=== PATIENT | male | born 1935 | race Native Hawaiian/Other Pacific Islander ===

== ENCOUNTER 2017-06-21 09:04 | Outpatient (CLI) | payer OTHER, BC | END 2017-06-21 10:30 | disposition home or self-care (01) | LOC: US 09:04 | DX: R09.89 Other specified symptoms and signs involving the circulatory and respiratory systems (principal) ==

== ENCOUNTER 2018-10-05 16:22 | Outpatient (CLI) | payer OTHER, BC | END 2018-10-05 16:38 | disposition short-term general hospital (02) | LOC: AMB 16:22 | DX: R06.2 Wheezing (principal) | CPT/HCPCS: A0425; A0427 ==

== ENCOUNTER 2018-11-22 10:36 | Inpatient (IN) | payer OTHER | END 2018-11-29 09:40 | disposition still patient (30) | LOC: PAVA 10:36 → PAVC 10:41 | PROVIDERS: ADMIT Internal Medicine ==

== ENCOUNTER 2018-11-25 04:36 | Outpatient (CLI) | payer OTHER ==
[2018-11-25 05:46] LABS: PLATELET COUNT 324 K/uL (142-355)
== END 2018-11-25 19:07 | disposition home or self-care (01) ==
LOC: LAB 04:36
PROVIDERS: Internal Medicine
DX: D64.9 Anemia, unspecified (principal); K92.2 Gastrointestinal hemorrhage, unspecified; K44.9 Diaphragmatic hernia without obstruction or gangrene
CPT/HCPCS: 36415; 80053; 82306; 82607; 82728; 83540; 84153; 84443; 85027

== ENCOUNTER 2018-11-26 12:00 | Outpatient (CLI) | payer OTHER, BC | END 2018-11-26 20:44 | disposition home or self-care (01) | LOC: LAB 12:00 | DX: E79.0 Hyperuricemia without signs of inflammatory arthritis and tophaceous disease (principal); K22.10 Ulcer of esophagus without bleeding | CPT/HCPCS: 84550 ==

== ENCOUNTER 2018-11-28 06:28 | Outpatient (CLI) | payer OTHER, BC | END 2018-11-28 23:11 | disposition home or self-care (01) | LOC: LAB 06:28 | DX: K92.2 Gastrointestinal hemorrhage, unspecified (principal) | CPT/HCPCS: 87081 ==

== ENCOUNTER 2018-11-29 10:26 | Inpatient (IN) | payer OTHER | END 2018-12-27 13:48 | disposition still patient (30) | LOC: PAVC 10:26 | PROVIDERS: ADMIT Internal Medicine ==

== ENCOUNTER 2018-12-04 23:06 | Outpatient (CLI) | payer OTHER | END 2018-12-05 00:06 | disposition home or self-care (01) | LOC: LAB 23:06 | DX: R19.5 Other fecal abnormalities (principal) | CPT/HCPCS: 83630; 87015; 87045; 87324; 87328; 87329; 87449; 87899 ==

== ENCOUNTER 2018-12-20 14:07 | Outpatient (CLI) | payer OTHER, BC | END 2018-12-20 19:46 | disposition home or self-care (01) | LOC: LAB 14:07 | DX: M10.9 Gout, unspecified (principal) | CPT/HCPCS: 84550 ==

== ENCOUNTER 2018-12-27 14:27 | Inpatient (IN) | payer OTHER | END 2019-01-27 12:32 | disposition still patient (30) | LOC: PAVC 14:27 | PROVIDERS: ADMIT Internal Medicine ==

== ENCOUNTER 2019-01-27 12:57 | Inpatient (IN) | payer OTHER | END 2019-02-26 13:44 | disposition still patient (30) | LOC: PAVC 12:57 | PROVIDERS: ADMIT Internal Medicine ==

== ENCOUNTER 2019-02-19 04:17 | Outpatient (CLI) | payer OTHER | END 2019-02-19 20:07 | disposition home or self-care (01) | LOC: LAB 04:17 | DX: E79.0 Hyperuricemia without signs of inflammatory arthritis and tophaceous disease (principal) | CPT/HCPCS: 36415; 84550 ==

== ENCOUNTER 2019-02-26 14:18 | Inpatient (IN) | payer OTHER ==
[2019-03-05] MEDS ORDERED: SEROQUEL50 MG PO (02:52)
[2019-03-05] MEDS ORDERED: PANTOPRAZOLE 40MG TA PO (02:52)
[2019-03-05] MEDS ORDERED: ASCO500T18 PO (02:53)
[2019-03-05] MEDS ORDERED: VITAMIN D32000 UNIT PO (02:53)
[2019-03-05] MEDS ORDERED: LORA1TAB17 PO (02:54)
[2019-03-05] MEDS ORDERED: LORA0.5T17 PO (02:54)
[2019-03-05] MEDS ORDERED: CLON0.5T36 PO (02:55)
[2019-03-05] MEDS ORDERED: TYLENOL325 M1 PO (02:56)
[2019-03-05] MEDS ORDERED: CLOP75TA2 PO (02:57)
[2019-03-05] MEDS ORDERED: CALCIUM 600 + D PO (02:57)
[2019-03-05] MEDS ORDERED: COLCRYS 0.6MG0.6 MG PO (02:57)
[2019-03-05] MEDS ORDERED: MEGESTROL AC40 MG/ML PO (02:58)
[2019-03-05] MEDS ORDERED: DONE5TAB PO (02:58)
[2019-03-05] MEDS ORDERED: RISP0.25 PO (02:59)
[2019-03-05] MEDS ORDERED: NAMENDA5 MG PO (02:59)
[2019-03-05] MEDS ORDERED: DULO30CA PO (03:00)
== END 2019-03-29 09:41 | disposition still patient (30) ==
LOC: PAVC 14:18
PROVIDERS: ADMIT Internal Medicine
DX: G30.9 Alzheimer's disease, unspecified (principal); J18.1 Lobar pneumonia, unspecified organism; R13.12 Dysphagia, oropharyngeal phase; I25.10 Atherosclerotic heart disease of native coronary artery without angina pectoris; N18.4 Chronic kidney disease, stage 4 (severe); I10 Essential (primary) hypertension; I95.9 Hypotension, unspecified; F03.90 Unspecified dementia, unspecified severity, without behavioral disturbance, psychotic disturbance, mood disturbance, and anxiety

== ENCOUNTER 2019-03-05 02:35 | Inpatient (IN) | payer OTHER ==
[~2019-03-05] VITALS: Ht 175.3 cm; Wt 70.0 kg
[2019-03-05] VITALS (11 sets, daily range): BP systolic 66–128; BP diastolic 36–68; TEMP 97.3–99; Ht 175.3 cm; Wt 70.0 kg
[2019-03-05] MEDS ORDERED: PANTOPRAZOLE 40MG TA PO (02:52)
[2019-03-05] MEDS ORDERED: SEROQUEL50 MG PO (02:52)
[2019-03-05] MEDS ORDERED: ASCO500T18 PO (02:53)
[2019-03-05] MEDS ORDERED: VITAMIN D32000 UNIT PO (02:53)
[2019-03-05] MEDS ORDERED: LORA0.5T17 PO (02:54)
[2019-03-05] MEDS ORDERED: LORA1TAB17 PO (02:54)
[2019-03-05] MEDS ORDERED: CLON0.5T36 PO (02:55)
[2019-03-05] MEDS ORDERED: TYLENOL325 M1 PO (02:56)
[2019-03-05] MEDS ORDERED: CALCIUM 600 + D PO (02:57)
[2019-03-05] MEDS ORDERED: CLOP75TA2 PO (02:57)
[2019-03-05] MEDS ORDERED: COLCRYS 0.6MG0.6 MG PO (02:57)
[2019-03-05] MEDS ORDERED: DONE5TAB PO (02:58)
[2019-03-05] MEDS ORDERED: MEGESTROL AC40 MG/ML PO (02:58)
[2019-03-05] MEDS ORDERED: RISP0.25 PO (02:59)
[2019-03-05] MEDS ORDERED: NAMENDA5 MG PO (02:59)
[2019-03-05] MEDS ORDERED: DULO30CA PO (03:00)
[2019-03-05 03:13] LABS: PLATELET COUNT 311 K/uL (142-355)
[2019-03-05 04:01] LABS: POTASSIUM 3.9 mmol/L (3.6-5.2)
[2019-03-06] VITALS (7 sets, daily range): BP systolic 97–127; BP diastolic 44–64; TEMP 97.6–99.8
[2019-03-07 04:00] VITALS: BP 98/56; TEMP 98
[2019-03-07 08:00] VITALS: BP 114/69; TEMP 97.7
[2019-03-07 12:00] VITALS: BP 103/48; TEMP 98.2
[2019-03-07 16:00] VITALS: BP 113/59; TEMP 98.1
[2019-03-07 20:00] VITALS: BP 132/75; TEMP 98.2
[2019-03-08] VITALS: BP 108/56; TEMP 98.7
[2019-03-08 04:00] VITALS: BP 153/76; TEMP 97.8
[2019-03-08 08:00] VITALS: BP 132/72; TEMP 98.2
[2019-03-08 10:44] LABS: PLATELET COUNT 291 K/uL (142-355)
[2019-03-08 10:52] LABS: POTASSIUM 3.9 mmol/L (3.6-5.2)
[2019-03-08 12:00] VITALS: BP 118/61; TEMP 98.5
== END 2019-03-08 13:50 | DRG 194 ==
LOC: ED 02:35 → MED/SURG 04:00
PROVIDERS: Internal Medicine; ADMIT Internal Medicine
DX: J18.8 Other pneumonia, unspecified organism (principal); J91.8 Pleural effusion in other conditions classified elsewhere; N18.4 Chronic kidney disease, stage 4 (severe); F02.81 Dementia in other diseases classified elsewhere, unspecified severity, with behavioral disturbance; I95.89 Other hypotension; R09.02 Hypoxemia; I25.10 Atherosclerotic heart disease of native coronary artery without angina pectoris; G30.8 Other Alzheimer's disease
CPT/HCPCS: 36415; 80053; 80200; 83605; 85027; 87040; 93005; 94640; 94664; 94760; 96365; 96366; 99284; J0456; J0696; J1630; J1940; J2060; J2543; J3260

== ENCOUNTER 2019-04-08 02:24 | Outpatient (CLI) | payer OTHER ==
[~2019-04-08 02:24] MED LIST: ASCO500T18 PO; CALCIUM 600 + D PO; CLON0.5T36 PO; CLOP75TA2 PO; COLCRYS 0.6MG0.6 MG PO; DONE5TAB PO; DULO30CA PO; LORA0.5T17 PO; LORA1TAB17 PO; MEGESTROL AC40 MG/ML PO; NAMENDA5 MG PO; PANTOPRAZOLE 40MG TA PO; RISP0.25 PO; SEROQUEL50 MG PO; TYLENOL325 M1 PO; VITAMIN D32000 UNIT PO
== END 2019-04-08 22:59 | disposition home or self-care (01) ==
LOC: LAB 02:24
DX: E79.0 Hyperuricemia without signs of inflammatory arthritis and tophaceous disease (principal)
CPT/HCPCS: 84550

== ENCOUNTER 2019-04-10 07:00 | Outpatient (CLI) | payer OTHER, BC ==
[2019-04-10 08:31] LABS: POTASSIUM 3.9 mmol/L (3.6-5.2)
== END 2019-04-10 19:40 | disposition home or self-care (01) ==
LOC: LAB 07:00
PROVIDERS: Family Medicine
DX: R60.1 Generalized edema (principal)
CPT/HCPCS: 80048

== ENCOUNTER 2019-04-28 12:38 | Inpatient (IN) | payer OTHER | END 2019-05-29 12:32 | disposition still patient (30) | LOC: PAVC 12:38 | PROVIDERS: ADMIT Internal Medicine ==

== ENCOUNTER 2019-05-01 08:11 | Outpatient (CLI) | payer OTHER ==
[2019-05-01 08:46] LABS: PLATELET COUNT 205 K/uL (142-355)
== END 2019-05-01 19:48 | disposition home or self-care (01) ==
LOC: LAB 08:11
PROVIDERS: Internal Medicine
DX: D64.89 Other specified anemias (principal); M10.9 Gout, unspecified; M62.81 Muscle weakness (generalized); F03.91 Unspecified dementia, unspecified severity, with behavioral disturbance; N18.4 Chronic kidney disease, stage 4 (severe)
CPT/HCPCS: 80053; 82607; 82728; 83540; 85027

== ENCOUNTER 2019-05-29 14:22 | Inpatient (IN) | payer OTHER | END 2019-06-29 17:17 | disposition still patient (30) | LOC: PAVC 14:22 | PROVIDERS: ADMIT Internal Medicine ==

== ENCOUNTER 2019-06-25 08:27 | Outpatient (CLI) | payer OTHER | END 2019-06-25 19:54 | disposition home or self-care (01) | LOC: RESP 08:27 | DX: I25.10 Atherosclerotic heart disease of native coronary artery without angina pectoris (principal); I50.9 Heart failure, unspecified | CPT/HCPCS: 93306 ==

== ENCOUNTER 2019-06-29 17:48 | Inpatient (IN) | payer OTHER | END 2019-07-29 12:59 | disposition still patient (30) | LOC: PAVC 17:48 | PROVIDERS: ADMIT Internal Medicine ==

== ENCOUNTER 2019-07-29 13:37 | Inpatient (IN) | payer OTHER ==
[2019-08-17] MEDS ORDERED: DULO60CA2 PO (18:55)
[2019-08-17] MEDS ORDERED: FURO20TA67 PO (18:56)
[2019-08-17] MEDS ORDERED: COLCRYS 0.6MG0.6 MG PO (18:58)
[2019-08-17] MEDS ORDERED: ULORIC40 MG PO (19:00)
[2019-08-17] MEDS ORDERED: SEROQUEL25 MG PO (19:00)
[2019-08-17] MEDS ORDERED: RISP0.25 PO (19:05)
== END 2019-08-29 14:16 | disposition still patient (30) ==
LOC: PAVC 13:37
PROVIDERS: ADMIT Internal Medicine

== ENCOUNTER 2019-08-14 12:28 | Outpatient (CLI) | payer OTHER, BC ==
[2019-08-14 12:43] LABS: PLATELET COUNT 304 K/uL (142-355)
[2019-08-14 14:07] LABS: POTASSIUM 3.9 mmol/L (3.6-5.2)
== END 2019-08-14 19:48 | disposition home or self-care (01) ==
LOC: LAB 12:28
PROVIDERS: Internal Medicine
DX: R05 Cough (principal); R00.0 Tachycardia, unspecified
CPT/HCPCS: 36415; 80053; 85027

== ENCOUNTER 2019-08-15 11:07 | Outpatient (CLI) | payer OTHER, BC | END 2019-08-15 21:30 | disposition home or self-care (01) | LOC: LAB 11:07 | DX: J11.1 Influenza due to unidentified influenza virus with other respiratory manifestations (principal); R05 Cough; R50.9 Fever, unspecified; R53.83 Other fatigue | CPT/HCPCS: 87502 ==

== ENCOUNTER 2019-08-15 14:45 | Outpatient (CLI) | payer OTHER, BC | END 2019-08-15 21:32 | disposition home or self-care (01) | LOC: RAD 14:45 | DX: R05 Cough (principal); R50.9 Fever, unspecified ==

== ENCOUNTER 2019-08-17 12:15 | Inpatient (IN) | payer OTHER ==
[~2019-08-17] VITALS: Ht 172.7 cm; Wt 68.1 kg
[2019-08-17 14:22] VITALS: BP 116/69; TEMP 98.4; Ht 172.7 cm; Wt 68.1 kg
[2019-08-17 14:22] LABS: PLATELET COUNT 379 K/uL (142-355)
[2019-08-17 14:32] LABS: POTASSIUM 4.1 mmol/L (3.6-5.2)
[2019-08-17 16:00] VITALS: BP 110/62; TEMP 97.6
[2019-08-17] MEDS ORDERED: DULO60CA2 PO (18:55)
[2019-08-17] MEDS ORDERED: FURO20TA67 PO (18:56)
[2019-08-17] MEDS ORDERED: COLCRYS 0.6MG0.6 MG PO (18:58)
[2019-08-17] MEDS ORDERED: ULORIC40 MG PO (19:00)
[2019-08-17] MEDS ORDERED: SEROQUEL25 MG PO (19:00)
[2019-08-17] MEDS ORDERED: RISP0.25 PO (19:05)
[2019-08-17 19:54] VITALS: BP 131/81; TEMP 97.6
[2019-08-18] VITALS (7 sets, daily range): BP systolic 99–131; BP diastolic 46–78; TEMP 97–99
[2019-08-18 12:57] LABS: POTASSIUM 3.6 mmol/L (3.6-5.2)
[2019-08-19 03:55] VITALS: BP 110/63; TEMP 98.4
[2019-08-19 05:15] LABS: PLATELET COUNT 318 K/uL (142-355)
[2019-08-19 05:30] LABS: POTASSIUM 3.5 mmol/L (3.6-5.2)
[2019-08-19 08:00] VITALS: BP 96/43; TEMP 97.8
[2019-08-19 12:00] VITALS: BP 101/35; TEMP 96.4
[2019-08-19 16:00] VITALS: BP 116/61; TEMP 97.4
[2019-08-19 20:00] VITALS: BP 122/65; TEMP 99.2
[2019-08-20] VITALS: BP 127/68; TEMP 100
[2019-08-20 04:00] VITALS: BP 113/57; TEMP 99.3
[2019-08-20 06:01] LABS: POTASSIUM 3.4 mmol/L (3.6-5.2)
[2019-08-20 08:00] VITALS: BP 122/60; TEMP 98.1
[2019-08-20 12:00] VITALS: BP 117/72; TEMP 97.9
== END 2019-08-20 15:38 | DRG 194 ==
LOC: MED/SURG 12:15
PROVIDERS: ADMIT Internal Medicine
DX: J18.8 Other pneumonia, unspecified organism (principal); E87.0 Hyperosmolality and hypernatremia; N17.8 Other acute kidney failure; I12.0 Hypertensive chronic kidney disease with stage 5 chronic kidney disease or end stage renal disease; N18.5 Chronic kidney disease, stage 5; E86.0 Dehydration; G30.8 Other Alzheimer's disease; F02.80 Dementia in other diseases classified elsewhere, unspecified severity, without behavioral disturbance, psychotic disturbance, mood disturbance, and anxiety; J11.1 Influenza due to unidentified influenza virus with other respiratory manifestations; R05 Cough; R50.9 Fever, unspecified; R53.83 Other fatigue
CPT/HCPCS: 36415; 80048; 80053; 83605; 83630; 83735; 83880; 85027; 87015; 87040; 87045; 87324; 87328; 87329; 87449; 87502; 87899; J1335; J1940; J1956; J2543; J3490

== ENCOUNTER 2019-08-29 14:59 | Inpatient (IN) | payer OTHER ==
[~2019-08-29 14:59] MED LIST changes: +DULO60CA2 PO; +FURO20TA67 PO; +SEROQUEL25 MG PO; +ULORIC40 MG PO
[2019-09-27] MEDS ORDERED: MULT VITAMI1 PO (04:41)
[2019-09-27] MEDS ORDERED: PROTEINE1 PO (04:42)
[2019-09-27] MEDS ORDERED: SEROQUEL25 MG PO (04:43)
[2019-09-27] MEDS ORDERED: JUVE1 PO (04:45)
[2019-09-27] MEDS ORDERED: CLARITIN10 M1 PO (04:46)
[2019-09-27] MEDS ORDERED: NAMZARIC 28-101 CAP PO (04:48)
== END 2019-09-28 08:00 | disposition still patient (30) ==
LOC: PAVC 14:59
PROVIDERS: ADMIT Internal Medicine

== ENCOUNTER 2019-09-27 00:36 | Inpatient (IN) | payer OTHER ==
[2019-09-27] VITALS (8 sets, daily range): BP systolic 80–115; BP diastolic 44–64; TEMP 97.4–102.8; Ht 172.7 cm; Wt 74.0 kg
[~2019-09-27] VITALS: Ht 172.7 cm; Wt 74.0 kg
[2019-09-27 01:16] LABS: PLATELET COUNT 196 K/uL (142-355)
[2019-09-27 01:25] LABS: POTASSIUM 3.6 mmol/L (3.6-5.2)
[2019-09-27 01:37] LABS: PARTIAL THROMBOPLASTIN TIME 26.3 SECONDS (24.5-33.6)
[2019-09-27] MEDS ORDERED: MULT VITAMI1 PO (04:41)
[2019-09-27] MEDS ORDERED: PROTEINE1 PO (04:42)
[2019-09-27] MEDS ORDERED: SEROQUEL25 MG PO (04:43)
[2019-09-27] MEDS ORDERED: JUVE1 PO (04:45)
[2019-09-27] MEDS ORDERED: CLARITIN10 M1 PO (04:46)
[2019-09-27] MEDS ORDERED: NAMZARIC 28-101 CAP PO (04:48)
[2019-09-28] VITALS (7 sets, daily range): BP systolic 96–116; BP diastolic 45–72; TEMP 98.1–99.7
[2019-09-28 04:27] LABS: PLATELET COUNT 137 K/uL (142-355)
[2019-09-28 04:47] LABS: POTASSIUM 3.2 mmol/L (3.6-5.2)
[2019-09-29 04:00] VITALS: BP 106/61; TEMP 98.3
[2019-09-29 08:00] VITALS: BP 117/62; TEMP 99.3
[2019-09-29 12:00] VITALS: BP 111/44; TEMP 99
[2019-09-29 16:00] VITALS: BP 134/66; TEMP 100.2
[2019-09-29 19:42] VITALS: BP 142/65; TEMP 100.1
[2019-09-30] VITALS: BP 131/65; TEMP 98.9
[2019-09-30 04:00] VITALS: BP 139/55; TEMP 98.6
[2019-09-30 04:30] LABS: PLATELET COUNT 156 K/uL (142-355)
[2019-09-30 04:57] LABS: POTASSIUM 3.1 mmol/L (3.6-5.2)
[2019-09-30 08:00] VITALS: BP 155/45; TEMP 98.7
[2019-09-30 12:00] VITALS: BP 119/45; TEMP 99.8
== END 2019-09-30 15:28 | DRG 871 ==
LOC: ED 00:36 → MED/SURG 02:00
PROVIDERS: Hospitalist; ADMIT Internal Medicine
DX: A41.89 Other specified sepsis (principal); J18.8 Other pneumonia, unspecified organism; J96.01 Acute respiratory failure with hypoxia; F05 Delirium due to known physiological condition; N17.8 Other acute kidney failure; F02.81 Dementia in other diseases classified elsewhere, unspecified severity, with behavioral disturbance; I13.0 Hypertensive heart and chronic kidney disease with heart failure and stage 1 through stage 4 chronic kidney disease, or unspecified chronic kidney disease; N18.4 Chronic kidney disease, stage 4 (severe); Z95.1 Presence of aortocoronary bypass graft; I25.10 Atherosclerotic heart disease of native coronary artery without angina pectoris; I95.89 Other hypotension; R41.82 Altered mental status, unspecified; F91.8 Other conduct disorders; R53.83 Other fatigue; G30.8 Other Alzheimer's disease
CPT/HCPCS: 36415; 36600; 51702; 80048; 80053; 80202; 81000; 82550; 82553; 82805; 83605; 83880; 84484; 85027; 85610; 85730; 87040; 87088; 87899; 93005; 94640; 94664; 94760; 96360; 96365; 96366; 96367; 96374; 96375; 99284; J1335; J1650; J1956; J3370

== ENCOUNTER 2019-09-28 11:00 | Inpatient (IN) | payer OTHER ==
[~2019-09-28 11:00] MED LIST changes: +CLARITIN10 M1 PO; +JUVE1 PO; +MULT VITAMI1 PO; +NAMZARIC 28-101 CAP PO; +PROTEINE1 PO
[2019-10-01 11:10] LABS: PLATELET COUNT 179 K/uL (142-355)
[2019-10-01 11:14] LABS: POTASSIUM 3.5 mmol/L (3.6-5.2)
== END 2019-10-29 09:31 | disposition still patient (30) ==
LOC: PAVC 11:00
PROVIDERS: ADMIT Internal Medicine
DX: J18.9 Pneumonia, unspecified organism (principal); I50.9 Heart failure, unspecified; G30.9 Alzheimer's disease, unspecified; I25.10 Atherosclerotic heart disease of native coronary artery without angina pectoris; I51.7 Cardiomegaly; I10 Essential (primary) hypertension; F03.90 Unspecified dementia, unspecified severity, without behavioral disturbance, psychotic disturbance, mood disturbance, and anxiety; M10.9 Gout, unspecified
CPT/HCPCS: 36415; 80053; 80202; 85027

== ENCOUNTER 2019-10-06 15:36 | Outpatient (CLI) | payer OTHER | END 2019-10-06 19:19 | disposition home or self-care (01) | LOC: RAD 15:36 | DX: J18.9 Pneumonia, unspecified organism (principal) ==

== ENCOUNTER 2019-10-07 11:40 | Outpatient (CLI) | payer OTHER | END 2019-10-07 21:00 | disposition home or self-care (01) | LOC: LAB 11:40 | DX: R41.82 Altered mental status, unspecified (principal) | CPT/HCPCS: 81000 ==

== ENCOUNTER 2019-10-29 10:05 | Inpatient (IN) | payer OTHER | END 2019-11-17 20:55 | disposition E | LOC: PAVC 10:05 | PROVIDERS: ADMIT Internal Medicine ==

== ENCOUNTER 2019-10-31 04:30 | Outpatient (CLI) | payer OTHER | END 2019-10-31 19:04 | disposition home or self-care (01) | LOC: LAB 04:30 | DX: I12.9 Hypertensive chronic kidney disease with stage 1 through stage 4 chronic kidney disease, or unspecified chronic kidney disease (principal); N18.4 Chronic kidney disease, stage 4 (severe); I25.10 Atherosclerotic heart disease of native coronary artery without angina pectoris | CPT/HCPCS: 82607; 82728; 83540 ==